=== PATIENT | female | born 1955 | race Caucasian/White ===

== ENCOUNTER → 2023-06-03 09:25 | Outpatient (BNVA) | payer OTHER, SELFPAY | PROVIDERS: Family Provider General Practice; PCP General Practice; Visit Provider Nurse Practitioner | DX: C56.9 Malignant neoplasm of unspecified ovary (principal) | CPT/HCPCS: 80053; 83615; 85025 ==

== ENCOUNTER → 2023-06-10 13:58 | Outpatient (BNVA) | payer OTHER, SELFPAY | PROVIDERS: Family Provider General Practice; PCP General Practice; Visit Provider Internal Medicine Hematology & Oncology | DX: C56.9 Malignant neoplasm of unspecified ovary (principal) | CPT/HCPCS: 80053; 83615; 85025 ==

== ENCOUNTER → 2023-06-17 11:37 | Outpatient (BNVA) | payer OTHER, SELFPAY | PROVIDERS: Family Provider General Practice; PCP Family Medicine; Visit Provider Family Medicine | DX: C56.9 Malignant neoplasm of unspecified ovary (principal) | CPT/HCPCS: 80053; 83615; 85025 ==

== ENCOUNTER 2024-01-15 10:54 | Day surgery (SDC) | payer MEDICARE, SELFPAY ==
[2024-01-15 11:39] VITALS: BP 118/94; PULSE 117; RESP 18; TEMP 36.5; O2SAT 96; BMI 23.8
--- NOTE | 2024-01-15 11:41 | US_ITS ---
WS: [id number] ULTRASOUND-GUIDED THERAPEUTIC PARACENTESIS Procedure, risks, and complications have been explained to the patient. Consent is obtained. Utilizing aseptic technique and 1% buffered lidocaine, a small dermatome was made through which a 5 F rench Yueh catheter was inserted. Approximately 4500 ml of clear peritoneal fluid was obtained witho ut difficulty. No complications encountered. US/US paracentesis abd w [id number] IMPRESSION: Uncomplicated paracentesis yielding 4500 ml of peritoneal fluid.
[2024-01-15 11:50] LABS: INR 0.97 (0.8-1.2)
== END 2024-01-15 13:10 | disposition home or self-care (01) ==
PROVIDERS: Radiology Diagnostic Radiology; Visit Provider Internal Medicine Hematology & Oncology
PROC: (CPT 49082; principal; 2024-01-15 13:00)
DX: R18.8 Other ascites (principal)
CPT/HCPCS: 49083; 85610

== ENCOUNTER → 2024-01-20 10:00 | Outpatient (BNVA) | payer MEDICARE, SELFPAY | PROVIDERS: Visit Provider Student in an Organized Health Care Education/Training Program | DX: R18.8 Other ascites (principal); C56.9 Malignant neoplasm of unspecified ovary | CPT/HCPCS: 99204 ==

== ENCOUNTER 2024-01-21 09:56 | Day surgery (SDC) | payer OTHER, SELFPAY ==
[2024-01-21 10:17] VITALS: BP 113/74; PULSE 113; RESP 18; TEMP 36.3; O2SAT 97
--- NOTE | 2024-01-21 10:19 | US_ITS ---
WS: [id number] ULTRASOUND-GUIDED PARACENTESIS CLINICAL INFORMATION: ascites COMPARISON: None. Procedure Informed consent: The risks, benefits, and alternatives of the procedure were discussed with the zac ent. Verbal and written consent was obtained. Timeout: A timeout was performed to confirm the correct patient, procedure, and site. Preparation: A suitable skin site was identified. The patient was prepped and draped in usual sterile fashion. Lidocaine 1% was used for local anesthesia. Catheter: 4 [place] One-step Yueh catheter. Side: RIGHT lower quadrant. Fluid Volume: 3500 ml Color: Clear yellow DISPOSITION: Discarded safely. Complications: None. Patient disposition: Discharged from the department in stable condition. US/US paracentesis abd w [id number] IMPRESSION: Uncomplicated ultrasound-guided paracentesis. Removal of 3500 cc
== END 2024-01-21 11:10 | disposition home or self-care (01) ==
LOC: GILAB 09:57
PROVIDERS: Radiology Neuroradiology; Visit Provider Student in an Organized Health Care Education/Training Program
PROC: (CPT 49082; principal; 2024-01-21 10:30)
DX: R18.8 Other ascites (principal)
CPT/HCPCS: 49083